=== PATIENT | male | born 2005 | race Hispanic/Latino ===

== ENCOUNTER 2025-01-22 11:31 | Emergency (ER) | payer SELFPAY | END 2025-01-22 12:18 | disposition home or self-care (01) | LOC: ERS 11:31 | DX: M54.50 Low back pain, unspecified (principal); F17.290 Nicotine dependence, other tobacco product, uncomplicated | CPT/HCPCS: 96372; 99282; J2919 ==

== ENCOUNTER 2025-02-27 01:24 | Emergency (ER) | payer SELFPAY | END 2025-02-27 04:30 | disposition home or self-care (01) | LOC: ERS 01:24 | DX: S67.191A Crushing injury of left index finger, initial encounter (principal); F17.290 Nicotine dependence, other tobacco product, uncomplicated; W23.0XXA Caught, crushed, jammed, or pinched between moving objects, initial encounter | CPT/HCPCS: 99283 ==